=== PATIENT | male | born 1995 | race Caucasian/White ===

== ENCOUNTER 2018-04-05 08:25 | Emergency (ER) | payer OTHER ==
[2018-04-05 08:36] VITALS: BP 148/81
[2018-04-05] MEDS ORDERED: IBUPROFEN 800 MG TABLET PO STA (12:05)
--- NOTE | 2018-04-05 12:38 | XRAY Report ---
Procedure Date: 04/05/2018 Accession Number: [id number] / [id number] Procedure: XR - Wrist 3 View RT CPT Code: FULL RESULT: EXAM: Wrist 3 View RT DATE: 04/05/2018 12:01 PM CLINICAL HISTORY: fall COMPARISON: None. TECHNIQUE: 3 views. FINDINGS: Bones: Normal. No fractures or bone lesions. Joints: Normal. No subluxations. Soft Tissues: Normal. No soft tissue swelling. IMPRESSION: Normal wrist radiography. [facility]
--- NOTE | 2018-04-05 12:49 | ED Physician Documentation ---
PD HPI UPPER EXT INJURY - Stated complaint Stated Complaint: R ARM INJ - Chief complaint Chief Complaint: Ext Problem - History obtained from History obtained from: Patient - History of Present Illness Location: Right, Wrist Where injury occurred: Street Timing - onset: Yesterday - Additonal information Additional information: The patient is a 23-year-old male who fell while skateboarding yesterday, injuring his right wrist. He also suffered abrasions to his right elbow and right hip. He is right hand dominant. Tetanus status is up-to-date. Review of Systems Constitutional: denies: Fever Respiratory: denies: Dyspnea GI: denies: Nausea, Vomiting Skin: reports: Abrasion (s) Musculoskeletal: reports: Extremity pain (right wrist.). denies: Neck pain, Back pain Neurologic: denies: Focal weakness, Numbness, Headache, Head injury PD PAST MEDICAL HISTORY - Past Medical History Past Medical History: No Endocrine/Autoimmune: None - Past Surgical History Past Surgical History: No - Present Medications Home Medications: Ambulatory Orders Medication Instructions Recorded Confirmed No Known Home Medications [No 04/05/18 04/05/18 Known Home Medications] - Allergies Allergies/Adverse Reactions: Allergies Allergy/AdvReac Type Severity Reaction Status Date / Time No Known Drug Allergies Allergy Verified 04/05/18 08:36 - Social History Does the pt smoke?: No Smoking Status: Never smoker - Immunizations Immunizations are current?: Yes PD ED PE NORMAL - Vitals Vital signs reviewed: Yes (borderline hypertension initially.) - General General: Alert and oriented X 3, Well developed/nourished - HEENT HEENT: Atraumatic - Neck Neck: No bony TTP - Cardiac Cardiac: RRR - Respiratory Respiratory: No respiratory distress, Clear bilaterally - Abdomen Abdomen: Soft, Non tender - Back Back: No spinal TTP - Derm Derm: No rash - Extremities Extremities: Other (There is tenderness to palpation over the dorsal aspect of the right wrist, without swelling or ecchymosis. He has full flexion and extension of the wrist as well as supination and pronation of the forearm, although range of motion exacerbates his symptoms. Distal neurovascular is intact. There are abrasions over the extensor aspect of the right elbow and lateral aspect of the right hip. He has full range of motion of those joints without tenderness.) - Neuro Neuro: Alert and oriented X 3, No motor deficit, No sensory deficit Results - Vitals Vitals: Oxygen O2 Source Room air - Rads (name of study) right wrist Radiology: Prelim report reviewed, EMP read contemporaneously, See rad report ( Normal wrist radiography.) Procedures - Splint (location) Right wrist Type of splint: Prefab velcro wrist Other: Patient tolerated well, No complications, Neurovascular intact PD MEDICAL DECISION MAKING - ED course Complexity details: reviewed results, re-evaluated patient, considered differential, d/w patient ED course: The patient's presentation is significant for sprain of the right wrist caused by falling from his skateboard. There is no evidence of fracture or dislocation on radiographic imaging of the wrist. Additional injuries include abrasions to the right hip and right elbow. Imaging studies of those joints are not clinically indicated based on physical examination. Treatment in the emergency department included administration of ibuprofen 800 mg orally. A Velcro wrist splint was applied. I discussed with him the expected course of injury, symptomatic treatment and outpatient follow-up, as well as potentially worrisome signs or symptoms that should prompt reevaluation in the emergency department. - Sepsis Event Vital Signs: Oxygen O2 Source Room air Departure - Departure Disposition: Home, Self Care Clinical Impression: Abrasions of multiple sites Right wrist sprain Qualifiers: Encounter type: initial encounter Qualified Code(s): S63.501A - Unspecified sprain of right wrist, initial encounter Condition: Stable Instructions: ED Sprain Wrist Follow-Up: SUREKHA Lopez [Provider Group] Comments: Apply ice pack to the injured areas intermittently for the next 3 days. You can use ibuprofen, up to 800 mg 3 times daily for its anti-inflammatory effect. Use the Velcro wrist splint if it provides comfort. Let pain be your guide to activity level. Follow up with your primary physician within 1-2 weeks. Call to schedule appointment. Return to the emergency department if you develop markedly increasing pain, any sign of infection, or otherwise worsening symptoms. Forms: Activity restrictions Discharge Date/Time: 04/05/18 13:07
== END 2018-04-05 13:07 | disposition home or self-care (01) ==
LOC: ED 08:25
DX: S63.501A Unspecified sprain of right wrist, initial encounter (principal); S50.311A Abrasion of right elbow, initial encounter; S70.211A Abrasion, right hip, initial encounter; V00.131A Fall from skateboard, initial encounter; Y93.51 Activity, roller skating (inline) and skateboarding
CPT/HCPCS: 73110; 99283; A9270

== ENCOUNTER 2018-07-11 06:06 | Day surgery (SDC) | payer OTHER ==
[2018-07-11] MEDS ORDERED: ceFAZolin 2 GM/50 ML 2 GM/50 ML BAG IV ONE (06:23)
[2018-07-11] MEDS ORDERED: LACTATED RINGERS 1,000 ML IV ONE ×2 (06:49→08:43)
--- NOTE | 2018-07-11 06:58 | ANESTHESIA ---
Pre-Anesthesia VS, & Labs - Diagnosis R wrist scaphoid fx - Procedure ORIF R wrist scaphoid, with bone graft Vital Signs: Temp Pulse Resp BP Pulse Ox 36.9 C 56 L 18 129/74 97 07/11/18 06:30 07/11/18 06:30 07/11/18 06:30 07/11/18 06:30 07/11/18 06:30 Height 6 ft Weight (kg) 87.09 kg Body Mass Index 12.4 Home Medications and Allergies No Known Home Medications 04/05/18 Allergies/Adverse Reactions: Allergies Allergy/AdvReac Type Severity Reaction Status Date / Time No Known Drug Allergies Allergy Verified 07/10/18 14:43 Anes History & Medical History - Anesthetic History Anesthesia Complications: reports: No previous complications Family history of Anesthesia Complications: Denies Family history of Malignant Hyperthermia: Denies - Medical History Cardiovascular: reports: None Pulmonary: reports: None Gastrointestinal: reports: None Urinary: reports: None Musculoskeletal: reports: Other Endocrine/Autoimmune: reports: None Skin: reports: None Smoking Status: Never smoker Exam General: Alert, Oriented x3, Cooperative Dental: WNL Mouth Opening: Greater than 4 Fingerbreadths Neck Mobility: Normal Mallampati classification: I Thyromental Distance: greater than 6 cm Respiratory: Lungs clear, Normal breath sounds, No respiratory distress Cardiovascular: Regular rate Neurological: Normal speech Mental/Cognitive Status: Alert/Oriented X3 Plan Anesthesia Type: General Consent for Procedure(s) Verified and Reviewed: Yes Code Status: Attempt Resuscitation ASA classification: 2-Mild systemic disease Is this case an emergency?: No
[2018-07-11] MEDS ORDERED: KETOROLAC 30 MG/ML VIAL IVP ONE (08:00)
[2018-07-11] MEDS ORDERED: HYDROmorphone 1 MG/ML CARPUJECT IVP ONE (08:00)
[2018-07-11] MEDS ORDERED: DEXAMETHASONE 4 MG/ML VIAL IVP ONE (08:00)
[2018-07-11] MEDS ORDERED: MIDAZOLAM 2 MG/2 ML VIAL IVP ONE (08:00)
[2018-07-11] MEDS ORDERED: ONDANSETRON 4 MG/2 ML VIAL IVP ONE (08:00)
[2018-07-11] MEDS ORDERED: PROPOFOL 200 MG/20 ML VIAL IVP ONE (08:00)
[2018-07-11] MEDS ORDERED: fentaNYL 100 MCG/2 ML VIAL IVP ONE (08:00)
[2018-07-11] MEDS ORDERED: KETAMINE 500 MG/10 ML VIAL IVP ONE (08:00)
[2018-07-11] MEDS: BUPIVACAINE 0.5%-EPI 1:200000 PF 30 ML VIAL ONE ×2 (08:28→09:12)
[2018-07-11] MEDS ORDERED: oxyCODONE 5 MG TABLET PO PRN (09:37)
[2018-07-11] MEDS ORDERED: HYDROmorphone 0.5 MG/0.5 ML SYRINGE IVP PRN (09:37)
[2018-07-11] MEDS ORDERED: ONDANSETRON 4 MG/2 ML VIAL IVP PRN (09:37)
--- NOTE | 2018-07-11 09:45 | OPERATIVE REPORT ---
Operative Report - General Planned Procedure: Right scaphoid ORIF possible bone grafting Pre-Op Diagnosis: Right scaphoid fracture Procedure Performed: Right scaphoid ORIF Post Op Diagnosis: Right scaphoid fracture - Procedure Note Primary Surgeon: Parker Morrissey MD Secondary Surgeon: Juan Pablo Hernandez MD Anesthesia Technique: General LMA Estimated Blood Loss (mL): 5 Complications: None - Other Other Information/Narrative: Tourniquet time: 61 minutes at 250 mmHg Indications for the procedure: Patient is a 23-year-old [id number] male who injured himself in March while skateboarding. He had immediate wrist pain but thought that his wrist was sprained, Radiographs obtained in the emergency department on 05 April were reported as normal.Over the next month and a halfHe had tried to stretch out his wrist and was not immobilized. He had significant continued pain and sought medical evaluation in mid May. Radiographs at that time demonstrated a right scaphoid waist fracture with cystic resorption about the fracture site. CT scan was obtained demonstrating alignment was anatomic without humpback deformity. He was placed into a short arm thumb spica cast, and followed up in clinic approximately 3 weeks later for further discussion of operative management. Based on the cystic resorption at the fracture site and concern for possible nonunion, we discussed surgical treatment consisting of open reduction internal fixation and bone grafting with autologous bone graft.His questions were answered and informed consent was signed. A repeat CT scan was obtained the day prior to surgery which demonstrated some healing of the fracture and bone formation within the prior cystic lesion. Had a long discussion about proceeding with surgery as planned versus continued cast immobilization. Ultimately the patient decided that he would like to pursue surgery, for stabilization of the fracture, and we discussed that bone grafting would likely be unnecessary given the degree of healing that had occurred. On the morning of surgery the patient was met in the preoperative holding area his identity was confirmed using full name and date of . We verified the patient, procedure, surgical site. The H&P was updated. The cast was removed without issue in the pre-op holding area. I initialed the surgical site. The patient was then turned over to anesthesia and was transported to the operating room. He was transferred to the operating table in the supine position with the right upper extremity on a hand table. A nonsterile tourniquet was placed high on the right brachium. The right upper extremity was then preprepped with a lcohol with thickened skin as a result of the cast gently debrided. Right upper extremity was then prepped and draped in usual sterile fashion. A surgical timeout was then conducted to verify the correct patient procedure and surgical site. We verified that we had all the correct equipment and that preoperative antibiotics had been administered. Once this had been accomplished superficial landmarks were marked on the right wrist including the radial styloid Prem's tubercle and the scaphoid tubercle. The course of the EPL was also marked up. An approximately 2 cm made a curvilinear incision just radial to Prem's tubercle following along the course of the EPL tendon was drawn. The right upper extremity was then exsanguinated with an Esmarch bandage and the tourniquet was raised to 250 mmHg. The skin was sharply incised and the subcu subcutaneous tissue was dissected using accommodation of sharp and blunt dissection down to the level of the extensor retinaculum this was divided revealing the second and third dorsal compartments. The EPL and extensor carpi radialis tendons were retracted were retracted radially to expose the dorsal wrist capsule.Fluoroscopy was used to confirm our location.And then the dorsal wrist capsule was incised in an inverted T fashion, taking care not to injure the dorsal scapholunate interosseous ligament.Tractors were placed within the capsule to facilitate exposure of the proximal pole of scaphoid. We used fluoroscopy to confirm our starting point, and then a guidewire was placed under direct visualization.Trajectory was thought to be due to ulnar and so a second guidewire was placed radial, and verified under biplanar fluoroscopy. Satisfied that this trajectory was appropriate, the guidewire was advanced to the subchondral bone.The first guidewire was then removed.The guidewire was measured and the length of the scaphoid measured 25 mm. The guidewire was then advanced through the far cortex of the scaphoid into the trapezium to anchor it. A cannulated drill was then used over the guidewire to prepare the scaphoid. A 3.5mm x 20 mm accutrak screw was selected and placed over the guidewire under hand power. Under direct visualization we confirmed that the screw had been appropriately countersunk approximately 2-3 mm. The guidewire was then removed. Final radiographs in multiple orientations were obtained using fluoroscopy, with appropriate position of the Acutrak screw on all imaging. There were no cortical breaches. The screw was completely contained within the scaphoid on all views. The wound was then irrigated with sterile saline, the capsule was closed using 0 Vicryl in [id number] fashion, the extensor retinaculum was closed with 0 Vicryl in [id number] fashion and the skin was then closed using 3-0 nylon interrupted horizontal mattress sutures. Half percent Marcaine was injected into the gracy-incisional soft tissues. The wound was then dressed with Xeroform 4 x 4's and webril. The tourniquet was let down and a plaster thumb spica splint was placed followed by an Lee bandage. The drapes were taken down, anesthesia was reversed, and the patient was transferred from the operating table back to the hospital bed. The patient was then transferred to the PACU in stable condition. There were no complications the patient tolerated the procedure well. Operative plan: 1. Patient will discharge from same day surgery when criteria met. 2. Keep splint clean and dry, the Splint will be removed at the first follow-up appointment. 3. Patient will be immobilized until radiographic signs of healing are demonstrated. Anticipate approximately 6-12 weeks of cast immobilization.
[2018-07-11] MEDS ORDERED: HYDROmorphone 0.5 MG/0.5 ML SYRINGE ONE (10:32)
[2018-07-11] MEDS ORDERED: oxyCODONE 5 MG TABLET ONE (11:04)
[2018-07-11 11:12] VITALS: BP 107/75
--- NOTE | 2018-07-11 13:19 | XRAY Report ---
Reason: s/p scaphoid ORIF Procedure Date: 07/11/2018 Accession Number: [id number] / [id number] Procedure: XR - Wrist 3 View RT CPT Code: FULL RESULT: EXAM: RIGHT WRIST RADIOGRAPHY EXAM DATE: 07/11/2018 10:24 AM. CLINICAL HISTORY: S/p scaphoid ORIF. COMPARISON: 04/05/2018. TECHNIQUE: 4 views. FINDINGS: The cast obscures detail. The scaphoid has been fixated with an orthopedic screw. Alignment is anatomic. Possible small amount of lucency within the scaphoid waist, mostly obscured by the cast. Carpal alignment is normal. IMPRESSION: Status post scaphoid fixation in anatomic alignment. [facility]
== END 2018-07-11 06:07 | disposition home or self-care (01) ==
LOC: SDS 06:06
PROVIDERS: ATTEND Orthopaedic Surgery
PROC: 0PHM04Z Insertion of Internal Fixation Device into Right Carpal, Open Approach (ICD-10-PCS; principal; 2018-07-11 07:30)
DX: S62.001A Unspecified fracture of navicular [scaphoid] bone of right wrist, initial encounter for closed fracture (principal); Z72.0 Tobacco use
CPT/HCPCS: 25628; 73110; A9270; J0690; J1170; J7120

== ENCOUNTER 2019-07-23 20:08 | Emergency (ER) | payer OTHER ==
[2019-07-23 20:18] VITALS: BP 139/50
--- NOTE | 2019-07-23 20:47 | ED Physician Documentation ---
PD HPI UPPER EXT INJURY - Stated complaint Stated Complaint: RT PINKY FINGER INJURY - History obtained from History obtained from: Patient - History of Present Illness Location: Right, Finger (little finger crushed in heavy object, with tear of distal part of nail/nailbed but nail still in place. proximal nailbed is okay. Finger hurts with movement.) Where injury occurred: Work Timing - onset: How many hours ago (1), Today Timing - details: Abrupt onset, Still present Worsened by: Moving, Palpating Associated symptoms: Swelling. No: Weakness, Numbness Similar symptoms before: Has not had sx before Review of Systems Skin: reports: Laceration (s) Neurologic: denies: Focal weakness, Numbness PD PAST MEDICAL HISTORY - Past Medical History Cardiovascular: None Respiratory: None Endocrine/Autoimmune: None GI: None : None HEENT: None Psych: None Musculoskeletal: Other Derm: None - Past Surgical History Past Surgical History: No - Present Medications Home Medications: Ambulatory Orders Medication Instructions Recorded Confirmed No Known Home Medications 04/05/18 07/10/18 - Allergies Allergies/Adverse Reactions: Allergies Allergy/AdvReac Type Severity Reaction Status Date / Time No Known Drug Allergies Allergy Verified 07/10/18 14:43 - Social History Does the pt smoke?: No Smoking Status: Never smoker - Immunizations Immunizations are current?: Yes PD ED PE NORMAL - Vitals Vital signs reviewed: Yes - General General: Alert and oriented X 3, No acute distress, Well developed/nourished - Derm Derm: Normal color, Warm and dry - Extremities Extremities: Other (right little finger with partial tear of the nail at distal third transversely. No injury to proximal nail/nychia. There is some blood at nailbed. No deformity of nailbed. Good Movement against resistance for flex/ext. tender at middle phalanx distally. no deformity.) - Neuro Neuro: No motor deficit, No sensory deficit Results - Vitals Vitals: Oxygen O2 Source Room air - Rads (name of study) finger Radiology: Prelim report reviewed (no fractures), See rad report PD MEDICAL DECISION MAKING - ED course Complexity details: reviewed results (no fractures), considered differential (finger tender from crush. Able to flex ext okay. the distal nail with almost completely torn across , slight attached. No disruption at base/nychia. ), d/w patient Departure - Departure Disposition: 01 Home, Self Care Clinical Impression: Crushed finger Qualifiers: Encounter type: initial encounter Qualified Code(s): S67.10XA - Crushing injury of unspecified finger(s), initial encounter Condition: Stable Record reviewed to determine appropriate education?: Yes Instructions: ED Crush Injury Finger No Fx Comments: No fracture on the x-ray. Your finger will be sore for a few days due to the injury. I would leave the torn part of the nail in place for couple of days or so to allow the injury of the nailbed to heal little bit. The loose part of the nail can then get trimmed off with nail clippers such. Has Tylenol ibuprofen as needed for pains. Gentle use of the finger as it will be sore for a few days. It should heal up though over the next several days to week. Discharge Date/Time: 07/23/19 21:56
[2019-07-23] MEDS ORDERED: ACETAMINOPHEN 325 MG TABLET PO STA (21:01)
[2019-07-23] MEDS ORDERED: IBUPROFEN 600 MG TABLET PO STA (21:01)
--- NOTE | 2019-07-23 21:31 | XRAY Report ---
Reason: crush little finger Procedure Date: 07/23/2019 Accession Number: [id number] / [id number] Procedure: XR - Finger(s) RT CPT Code: Final Report FULL RESULT: EXAM: RIGHT 1st/2nd/3rd/4th/5th DIGIT RADIOGRAPHY EXAM DATE: 07/23/2019 09:15 PM. CLINICAL HISTORY: Crush little finger. COMPARISON: WRIST 3 VIEW RT 07/11/2018 10:03 AM. TECHNIQUE: 3 views. FINDINGS: No acute fracture or dislocation is seen. The screw extending into the scaphoid is reidentified and unchanged in position. The remaining osseous structures are intact and well aligned. The bone mineralization is normal. There is no focal soft tissue swelling. IMPRESSION: No acute fracture or dislocation. [facility]
== END 2019-07-23 21:56 | disposition home or self-care (01) ==
LOC: ED 20:08
DX: S67.196A Crushing injury of right little finger, initial encounter (principal); W22.8XXA Striking against or struck by other objects, initial encounter; Y99.0 Civilian activity done for income or pay
CPT/HCPCS: 73140; 99283; A9270